=== PATIENT | male | born 1960 | race Caucasian/White ===

== ENCOUNTER → 2020-02-20 09:12 | Outpatient (CLI) | payer OTHER, SELFPAY ==
[2020-02-21 01:38] LABS: COVID19 Sendout Not Detected (Not Detect)
== END ==
PROVIDERS: Visit Provider Physician Assistant
DX: Z11.59 Encounter for screening for other viral diseases (principal)
CPT/HCPCS: 87635

== ENCOUNTER 2020-02-23 08:39 | Day surgery (SDC) | payer OTHER, SELFPAY ==
[2020-02-16 12:58] VITALS: BMI 30.2
[2020-02-23] VITALS (15 sets, daily range): BP systolic 62–134; BP diastolic 37–81; PULSE 40–97; RESP 13–18; TEMP 36.1–36.9; O2SAT 95–98; BMI 30.5
--- NOTE | 2020-02-23 06:00 | DI.RAD.S_ITS ---
PROCEDURE: XR KNEE LT 1TO2V INDICATIONS: postop TECHNIQUE: 2 view(s) of the knee acquired. COMPARISON: None. FINDINGS: Bones: Patient is status post knee joint arthroplasty. Hardware components are in expected positions. Visualized bony structures are intact. Soft tissues: Overlying postoperative changes are noted. IMPRESSION: Normal alignment after left total knee arthroplasty. Dictated by: Dion Sands M.D. on 02/23/2020 at 14:13 Approved by: Dion Sands M.D. on 02/23/2020 at 14:14
[2020-02-23] MEDS: LACTATED RINGERS 1,000 ML 42 ML IV ×2 (09:14→12:13)
[2020-02-23] MEDS: CELECOXIB 200 MG CAPSULE PO (09:18)
[2020-02-23] MEDS: PREGABALIN 75 MG CAPSULE PO (09:18)
[2020-02-23] MEDS: ACETAMINOPHEN 325 MG TABLET 975 MG PO (09:18)
--- NOTE | 2020-02-23 10:43 | P.OP_ITS ---
Operative Date/Time/Diagnoses Date of procedure: 02/23/20 Time of procedure: 10:43 Pre-op diagnosis: Bilateral knee OA Post-op diagnosis: same Procedure & Clinicians Procedure: Left total knee arthroplasty, right knee intra-articular steroid injection Same procedure as scheduled: Yes Indications: Bilateral knee OA Surgeon: Edilson Leslie Special Trackwork Blacksmith: Frandy Han Anesthesia Type: Spinal Operative Notes Findings: Advanced OA of the left knee with varus aligment of the extremity Closure Type: primary Prosthetic devices, grafts, tissues, transplants, or devices: [employer]hew size 8 left Journey II Oxinium femoral component Journey size 8 left tibial base plate Size 8 left 13 mm Journey 2 deep dish polyethylene 35 mm oval Quita II patellar button Estimated Blood Loss (mL): 200 Tourniquet time (min): 85 Procedure in detail: Patient was met in the preoperative holding area where the site and side of surgery were marked by MD. Informed consent had been reviewed and signed in clinic however was not transmit over the hospital. Informed consent was again reviewed with the patient going over the risks and benefits of surgery including the risk of infection, incomplete relief of symptoms, damage to local structures such as vessels and nerves, fracture, DVT, PE, need for future surgeries, etc. Patient demonstrates understanding of the risks and benefits a left total knee arthroplasty and wishes to proceed. In addition patient would like his right knee injected with an intra-articular steroid injection at the time of anesthesia. This was also included on the consent form. Patient was then brought back in the operating room where he is placed on operating table and spinal anesthetic was placed. He was then placed supine on operating room table. A surgical time-out was performed verifying the site and side of surgery as well as the name of the patient. This point the skin over the superolateral aspect of the right knee was prepped with ChloraPrep a 25 gauge needle was inserted into the right knee through superolateral portal and 5 cc combination of 40 mg of Kenalog and 4 cc of 0.5% ropivacaine was then injected into the joint with minimal resistance. The needle was then removed. The left lower extremity then had a nonsterile tourniquet placed on left thigh and the left lower extremity was then prepped and draped in normal sterile fashion. A longitudinal skin incision was made over the left knee using 10. Blade. A new 10. Blade was then used to raise medial and lateral flaps a medial parapatellar arthrotomy was then performed followed by removal of Hoffa's fat pad. A medial peel was then performed followed by removal of the lateral meniscus and anterior cruciate ligament. Excess osteophytes from the patella anterior tibia and the femur were then removed using a rongeur. Whitesides line was then marked and a drill was then used to enter the femoral canal proximally 0.5 cm anterior to PCL footprint. Intramedullary emre was then placed inside the left femur and the 5 degree valgus femoral cutting guide was then placed. After pinning the femoral block it was then increased by +4 mm. Patient had a known extension contracture preop. Femoral cut was then made using oscillating saw. Then turned our attention to the tibial side atrial was then used to enter the tibial canal 1 cm anterior to the ACL footprint and intramedullary emre was then placed. The cutting jig was then placed a drop emre was used to verify varus valgus alignment and a oscillating saw was then used to make our tibial cut. The medial meniscus was then removed using a rongeur and electrocautery. A static 11 mm extension block was then placed into our extension gap and we were able to achieve full extension. We then turned our attention back to the femoral side and the flexion gap administrative nursing supervisor was then used to set our femoral rotation. This was then marked and compared to Whitesides line which showed external rotation then used our femoral rotation guide set to 3? matched our administrative nursing supervisor pin sites. The femur was then sized to a size 8 and a and side a 5 in 1 cutting block was then placed on the distal femur. For cuts were then sequentially made using oscillating saw. A size 8 femoral component trial was then placed as well as a size a tibial trial with a 11 mm polyethylene. At this point was noted that we able to come to full extension although there was a slight amount of chocolate ac ceptable in full extension in flexion there was a little bit more laxity than I would like to varus valgus in full flexion. We then selected a 13 mm polyethylene was still able to get full extension as well as close down the flexion gap. Then cut the patella and sized for size 35 mm oval button this was then drilled for and a trial button was placed through range of motion the was some medial lift-off and so a lateral release was performed which helped our patellar tracking. Femoral component as well as the patellar trial and the tibial trials were then removed after marking tibial baseplate rotation. The tibial base plate was then drilled and punched. Local anesthetic was then infiltrated into the back of the knee as well as the periarticular soft tissues. Pulse lavage was then used to clean the cut surfaces of bone we began cement mixing. Cut surfaces were then dried and cement was then finger packed onto the tibial cut surface as well as into the keel hole. Cement was placed on the undersurface of the tibial base plate the tibial base plate was then malleted into place excess cement was removed cement was then finger packed onto the cut surfaces of the femur with exception of the posterior condyle cut. Cement was placed on the feet of the femoral component and this was malleted into place and excess cement was removed. A size 13 mm CR polyethylene was then selected then placed the knee was brought into full extension and the foot was held in internal rotation. Then finger packed cement onto the patella cut surface as well as placed cement between the pegs on the patellar button this was then clamped into place and excess cement was removed. Betadine was then placed into the wound allowed to sit for 5 minutes prior to washing away with copious normal saline. The knee was held in full extension until cement was fully cured this point excess cement was chipped away and removed. The polyethylene trial was then removed and a size 813 mm deep dish polyethylene was then selected and placed with confirmation that the medial and lateral tabs were fully engaged. Patellar tracking was checked again and was noted to be improved with the lateral leads. Tourniquet was then let down a 85 minutes down electrocautery was used to gain hemostasis. Medial parapatellar arthrotomy was then repaired using 1. Vicryl interrupted fashion followed by Quill suture followed by a running 1. Vicryl as the fat suture layer followed by interrupted 2 Vicryl in the subcutaneous layer followed by a 3 over running stress fix in the subcuticular layer followed by Dermabond. An Aquacel dressing was then placed Complications: none Post-operative Condition: stable Disposition: PACU Plan for aftercare: Weightbearing as tolerated left lower extremity, 24 hours postop antibiotics, aspirin 325 mg b.i.d. for 6 weeks
--- NOTE | 2020-02-23 10:44 | PM.PREOP ---
Pre-operative Note COVID-19 COVID-19 status: Negative Result date/Date tested (Pos, Neg/Pending): 02/20/20 Interval Note History & Physical reviewed/Exam performed by Physician: Yes Changes to H&P: No H&P completed within 30 days and has changed as indicated here:: Plan for Left Total Knee Arthroplasty, right knee steroid injection. Pre-op EKG and labs reviewed.
[2020-02-23] MEDS: CEFAZOLIN 2 GM/100 ML FROZ.PIGGY IV ×2 (10:54→20:13)
--- NOTE | 2020-02-23 11:29 | SUR.OPER ---
Supine on padded OR bed. Pillow under head, arms secured on padded armboards <90 degree abduction. Safety belt across torso. Non-operative leg secured with tape over blanket over lower leg. Foam padded brace at thigh of operative leg.
[2020-02-23] MEDS: TRANEXAMIC ACID 1,000 MG VIAL 1000 MG INH (11:36)
[2020-02-23] MEDS: ROPIVACAINE 0.5% PF 5 MG/ML 20ML VIAL 60 ML INJ (11:37)
[2020-02-23] MEDS: MORPHINE 4 MG/ML INJ INJ (11:38)
[2020-02-23] MEDS: KETOROLAC 30 MG/ML VIAL IV (11:38)
--- NOTE | 2020-02-23 11:40 | SUR.OPER ---
UNABLE TO SCAN MARCAINE 0.5 AND KENALOG REMOVED FROM [address] WORTHINGTON DISPOSED OF THE MEDICINE BOTTLES.
[2020-02-23] MEDS: SODIUM CHLORIDE IRRIG SOLUTION 250 ML, EPINEPHrine 1 MG IRR (12:54)
[2020-02-23] MEDS: LACTATED RINGERS 1,000 ML 100 ML IV (14:49)
[2020-02-23] MEDS: ACETAMINOPHEN 325 MG TABLET 650 MG PO ×2 (14:50→20:13)
--- NOTE | 2020-02-23 17:10 | PT.IIE ---
Current Diagnoses Unilateral primary osteoarthritis, right knee (02/23/20) Surgery Performed Operation Date: 02/23/20 10:45 Actual Procedures p Total Knee Arthroplasty LEFT, RIGHT KNEE STEROID INJECTION - Edilson Leslie MD Surgical History (Last Updated 02/16/20 @ 13:27 by Na Abdul RN) History of surgery (Acute) History of vasectomy (Acute) Hx of arthroscopy of right knee (Acute ~1997) Hx of arthroscopy of right knee (Acute ~2010) Hx of bilateral cataract extraction (Acute) Hx of eye surgery (Acute) Hx of hand surgery (Acute) Hx of heart artery stent (Acute) Hx of right knee surgery (Acute) Hx of sinus surgery (Acute) Hx of tonsillectomy (Acute) Medical History (Last Updated 02/16/20 @ 13:27 by Na Abdul RN) CAD (coronary artery disease) (Acute) GERD (gastroesophageal reflux disease) (Acute) Glaucoma (Acute) Head injury (Acute 1985) Hearing impaired (Acute) Hemochromatosis (Acute) HLD (hyperlipidemia) (Acute) HTN (hypertension) (Acute) Myocardial infarction (Acute 2005) Osteoarthritis (Acute) Physical Therapy Inpatient Evaluation/Re-Eval M1 PT/OT-IP Prior Functional Status Start: 02/23/20 15:05 Freq: NEEDED Status: Active Protocol: Document 02/23/20 16:53 AW (Rec: 02/23/20 17:10 AW [id number]) Medical Review Prior Functional Status Medical History Reviewed Yes Communication WNL. Pt is an effective verbal communicator. Mobility and Gait Pt is independent with all mobilities and does not use any assistive device. Activities of Daily Living and IADL's Independent. Pt is an active tour bus driver/guide. Social History Household Members spouse Living Arrangements House Number of Floors (Floors) Two Floors Number of Stairs To Enter/Railing? 5 HUMZA with narrow bilateral rails. Pt is able to stay on main level until able to manage stairs to second floor bedrooms. Home Environment Standard Height Toilet,High Toilet,Walk in Shower,Tub/ Shower Home Equipment Front Wheel Walker Additional Social History Comment There are a wall and a cabinet next to the toilet which pt can use to steady himself. Pt has foldout beds downstairs so he can avoid up/down stairs until able. Pt's works at home and will be available and able to assist. Pt is an lead electrical engineer. M2 PT-IP Current Condition Start: 02/23/20 15:05 Freq: NEEDED Status: Active Protocol: Document 02/23/20 16:53 AW (Rec: 02/23/20 17:10 AW [id number]) Physical Therapy Current Condition Current Condition Evaluation Date 02/23/20 Treatment Diagnosis L TKA; difficulty in walking Onset Date 02/23/20 Weight Bearing Status Weight Bearing Status Weight Bear as Tolerated M3 PT-IP Subjective Start: 02/23/20 15:05 Freq: NEEDED Status: Active Protocol: Document 02/23/20 16:53 AW (Rec: 02/23/20 17:10 AW [id number]) Subjective Physical Therapy Visit Type Type Initial Evaluation Visit Start Time 16:16 Visit Stop Time 16:50 Total Visit Minutes 34 Notes Pt's spouse, Padmaja, was present throughout evaluation Physical Therapy Visit Comments Patient Comments Pt is willing to participate with PT Patient Goals Pt hopes to be able to increase his activity level Therapy Pain Assessment Pain When Pain Assessed During Mobility Pain Present Pain Present Pain Reported Location left knee Intensity 10 Scale Used 1/10 at rest; 10/10 during weightbearing Pain Behaviors Facial Grimacing,Wincing Pain Management Techniques Apply Cold,Timing of Activity with Medications M4 PT-IP Mobility and Gait Start: 02/23/20 15:05 Freq: NEEDED Status: Active Protocol: Document 02/23/20 16:53 AW (Rec: 02/23/20 17:10 AW [id number]) PT-Bed Mobility Assessment Supine to Sit Supine to Sit Minimal Assistance,Total Assistance,Bedrails Sit to Supine Sit to Supine Minimal Assistance,1 Person Assistance Scooting Scooting to Edge of Bed Standby Assistance PT-Transfer Assessment Sit to and From Stand Sit to and from Stand Minimal Assistance,1 Person Assistance,Use of Upper Extremities Equipment Transfer Assistive Device Gait Belt,Front Wheeled Walker Orthotic/Prosthetic Devices or Brace: No Transfers Transfer Destination Bed Transfer Technique pt ambulated with FWW Transfer Ability Level of Assist Minimal Assistance,1 Person Assistance,Use of Upper Extremities Comments Mobility Comments Pt was reclined in the bed as PT arrived. Spouse, Padmaja, was visiting. With HOB flat, pt required min A x 1 to move his operative leg toward the left side of the bed and to support it during flexion. Sitting BP was 135/77 HR 62. He sat EOB SBA and then stood using FWW min A x 1. Pt required cues to push from the bed surface vs pulling on the FWW. Pt was able to shift weight laterally with heavy UE weightbearing on the walker to offload the LLE. Pt complained of significantly increased pain in standing. Pt ambulated around the room a total of 15 feet before returning to the bed and requiring min A x 1 to elevate the operative leg to the bed. Before returning to supine, BP was 107/55 and pt complained of nausea. Pt was positioned on the bed with fresh ice packs applied, call light and all needs within reach, bed alarm armed for safety. Communicated findings to RN as well as pt's request for pain medication. Gait Assessment Gait Gait Assistance Required: Minimum Assistance,1 Person Assist Distance (Feet) 15 Able to Maintain Weight Bearing Status Yes During Gait Assistive Devices Assistive Device Gait Belt,Front Wheeled Walker Orthotic/Prosthetic Devices or Brace: No Gait Deviations General Gait Pattern Antalgic,Decreased Stride Length,Decreased Feet Clearance,Flexed Trunk,Step-to Gait Factors Limiting Gait Function Factors Limiting Gait Function Decreased Activity Tolerance, Decreased Strength,Limited Range of Motion,Pain,Poor Balance,Poor Safety Awareness Comments Gait Comments See mobility comments for details. Stair Climbing Assessment Comments Stair Climbing Comments Not assessed due to pt's pain level. PT-Balance Assessment Sitting Balance and Reactions Static Sitting Balance Ability Good Dynamic Sitting Balance Ability Good Standing Balance and Reactions Static Standing Balance Ability Fair Dynamic Standing Balance Ability Fair Device Used FWW M5 PT-IP Objective Assessments Start: 02/23/20 15:05 Freq: NEEDED Status: Active Protocol: Document 02/23/20 16:53 AW (Rec: 02/23/20 17:10 AW [id number]) Orientation Orientation/Cognition Level of Alertness Alert Orientation Name,Day of Week,Place, Situation Language Function Ability No Deficits Noted Safety Awareness Decreased Safety Awareness Memory Description No Deficits Noted Gross Range of Motion Lower Extremity ROM Assessment Left Impaired Strength Lower Extremity Strength Assessment Left Impaired Comments Strength Comments RLE grossly 4+/5 Sensation Assessment Sensation Gross Sensation WNL Comments Sensation Comments Pt denied numbness in BLE M6 PT-IP Treatment Start: 02/23/20 15:05 Freq: NEEDED Status: Active Protocol: Document 02/23/20 16:53 AW (Rec: 02/23/20 17:10 AW [id number]) Physical Therapy Treatment Exercises Exercises Ankle Pumps,Quad Sets,Heel Slides,Passive Knee Extension Hang Knee ROM Measurement 10-80 degrees Education Education Provided Precautions,Weight Bearing Status,Post-Op Packet,Safety Other Treatments Other Treatment Performed Provided education on role of PT, plan of care, weightbearing status, and safe use of FWW. M7 PT-IP Assessment and Plan Start: 02/23/20 15:05 Freq: NEEDED Status: Active Protocol: Document 02/23/20 16:53 AW (Rec: 02/23/20 17:10 AW [id number]) PT Summary Assessment and Plan Potential Rehabilitation Potential Good Status of Condition at Evaluation Evolving Summary Impairments Pain,ROM,Strength,Balance,Bed Mobility,Transfers,Gait, Activity Tolerance Assessment Summary Carl is a 59 yo man seen for PT evaluation on POD0 following L TKA. He is independent in all regards at baseline. On evaluation, he requires min assist with all mobility. Primary limitation is pain but pt also complains of nausea and experienced a 30 point drop in SBP during treatment. PT anticipates he will progress and be safe to discharge home with assist and outpatient PT. Pt reports he has his first PT appointment this Sunday. Goals Bed Mobility Goal Standby Assistance Transfer Goal Standby Assistance,Front Wheeled Walker Gait Goal Standby Assistance,Front Wheel Walker Gait Distance 200 Other Goals - up/down 5 steps with B rails SBA Days to Meet Goals 3 Frequency of Treatment Frequency Of Treatment Twice a Day Treatment Plan Physical Therapy Treatment Plan Bed Mobility Training,Transfer Training,Gait Training, Therapeutic Exercise,Balance Retraining,Post Op Education, Discharge Planning,Hot or Cold Pack,Neuromuscular Re-ed, Coordination Retraining,Manual Therapy Recommendations To Nursing Amount of Assist Needed 1 Person Assist Discharge Recommendations PT Discharge Recommendations Home with Assistance, Outpatient PT Transportation Needs at Discharge Private Vehicle
[2020-02-23 19:55] LABS: Add Manual Diff / Slide Review NO; Basophils Absolute Auto 0 /uL (0-100); Basophils Percent Auto 0.1 % (0-2); Eosinophils Absolute Auto 0 /uL (0-450); Hematocrit 37.6 % (41-53); Hemoglobin 13.2 g/dL (13.5-17.5); Lymphocytes Absolute Auto 400 /uL (1100-4500); Lymphocytes Percent Auto 3.6 % (25-40); Mean Corpuscular Hemoglobin 34.9 PG (26-34); Mean Corpuscular Volume 99.6 fL (80-100); Monocytes Absolute Auto 200 /uL (0-900); Monocytes Percent Auto 1.9 % (3-14); Neutrophils Absolute Auto 10300 /uL (1500-7000); Neutrophils Percent Auto 94.4 % (50-75); Platelet Count 166 X10^3/uL (150-400); Red Blood Cell Count 3.78 X10^6/uL (4.5-5.9); Red Cell Distribution Width 12.3 % (11.6-14.8); White Blood Cell Count 10.9 X10^3/uL (4.5-11.0)
[2020-02-23] MEDS: DOCUSATE 100 MG CAPSULE PO (20:13)
[2020-02-23] MEDS: ASPIRIN EC 81 MG TABLET 325 MG PO (20:13)
[2020-02-24] MEDS: OXYCODONE IR 10 MG TABLET PO ×3 (01:32→12:48)
[2020-02-24] MEDS: BIMATOPROST 0.01% OPHTH 2.5 ML 1 DROPS EYE-BOTH (01:37)
--- NOTE | 2020-02-24 01:43 | PC.NURSE ---
Pt. requested his eye gtt. States I normally used my eye drop at night when I'm home. Pt. self administered his eye drop. C/O left knee pain, mrdicated with 10 mg. of Oxycodone. Will cont. POC & monitor.
[2020-02-24] MEDS: LACTATED RINGERS 1,000 ML 100 ML IV (01:51)
[2020-02-24] MEDS: CEFAZOLIN 2 GM/100 ML FROZ.PIGGY IV (03:00)
[2020-02-24 03:50] VITALS: BP 117/75; PULSE 60; RESP 18; TEMP 36.3; O2SAT 95
[2020-02-24 05:35] LABS: Hematocrit 34.3 % (41-53)
--- NOTE | 2020-02-24 07:46 | P.PN_ITS ---
Subjective Subjective Date Patient Seen: 02/24/20 Time Patient Seen: 07:46 Interval history: Patient's pain is mild. Denies fever chills. No nausea vomiting. Exam Vital Signs (past 8 hours): - 02/24/20 03:50 Temperature 97.4 F L Pulse Rate 60 Respiratory Rate 18 Blood Pressure 117/75 Pulse Oximetry 95 Oxygen Delivery Method Room Air Oxygen Flow Rate 0 Narrative Exam Narrative: 5-year-old male resting comfortably in bed in no apparent distress. Knee dressing is clean, dry and intact. Motor function is intact distal. Sensation grossly intact distally as well. Objective Labs Result Diagrams: 02/24/20 05:07 Labs: Laboratory Results - last 24 hr 02/23/20 02/24/20 19:33 05:07 WBC 10.9 RBC 3.78 L Hgb 13.2 L 12.0 L Hct 37.6 L 34.3 L MCV 99.6 MCH 34.9 H MCHC 35.0 RDW 12.3 Plt Count 166 Neut % (Auto) 94.4 H Lymph % (Auto) 3.6 L [place] % (Auto) 1.9 L Eos % (Auto) 0.0 L Baso % (Auto) 0.1 Neut # (Auto) 52413 H Lymph # (Auto) 400 L [place] # (Auto) 200 Eos # (Auto) 0 Baso # (Auto) 0 Assessment & Plan Post-op Postoperative Procedures: Procedures Operation Date: 02/23/20 10:45 Actual Procedures Side Surgeon p Total Knee Arthroplasty LEFT, RIGHT KNEE STEROID INJECTION Edilson Leslie MD Postop day 1. Patient progressing as expected. Mobilize with physical therapy. Weight-bearing as tolerated. Aspirin 325 mg b.i.d. for 6 weeks. Likely discharge home this evening. Quality VTE Deep Vein Thrombosis/Pulmonary Embolism Present on Admission: No
[2020-02-24 08:00] VITALS: BP 118/74; PULSE 70; RESP 20; TEMP 37.1; O2SAT 96
[2020-02-24 08:56] VITALS: PULSE 70; RESP 16; O2SAT 99
[2020-02-24] MEDS: ACETAMINOPHEN 325 MG TABLET 650 MG PO (09:19)
[2020-02-24] MEDS: DOCUSATE 100 MG CAPSULE PO (09:19)
[2020-02-24] MEDS: ASPIRIN EC 325 MG TABLET PO (09:25)
--- NOTE | 2020-02-24 10:49 | PC.NURSE ---
Day shift: Pt OOB and ambulating with PT. Tolerating well. BP WNL.
--- NOTE | 2020-02-24 11:10 | PT.IPTN ---
Current Diagnoses Unilateral primary osteoarthritis, right knee (02/23/20) Surgery Performed Operation Date: 02/23/20 10:45 Actual Procedures p Total Knee Arthroplasty LEFT, RIGHT KNEE STEROID INJECTION - dEilson Leslie MD Physical Therapy Treatment Note M2 PT-IP Current Condition Start: 02/23/20 15:05 Freq: NEEDED Status: Active Protocol: Document 02/23/20 16:53 AW (Rec: 02/23/20 17:10 AW [id number]) Physical Therapy Current Condition Current Condition Evaluation Date 02/23/20 Treatment Diagnosis L TKA; difficulty in walking Onset Date 02/23/20 Weight Bearing Status Weight Bearing Status Weight Bear as Tolerated M3 PT-IP Subjective Start: 02/23/20 15:05 Freq: NEEDED Status: Active Protocol: Document 02/24/20 10:26 CLB (Rec: 02/24/20 13:04 CLB [id number]) Subjective Physical Therapy Visit Type Type Treatment Note Visit Start Time 10:26 Visit Stop Time 11:10 Total Visit Minutes 44 Notes Pt's spouse, Padmaja, was present throughout evaluation Number of STONE SPLITTER Visits 1 Physical Therapy Visit Comments Patient Comments Pt is willing to participate with PT Therapy Pain Assessment Pain When Pain Assessed At Rest Pain Present Pain Present Pain Reported Location left knee Intensity 2 Scale Used pt states a little higher with mobility Pain Management Techniques Apply Cold,Timing of Activity with Medications M4 PT-IP Mobility and Gait Start: 02/23/20 15:05 Freq: NEEDED Status: Active Protocol: Document 02/24/20 10:26 CLB (Rec: 02/24/20 13:04 CLB [id number]) PT-Bed Mobility Assessment Supine to Sit Supine to Sit Minimal Assistance,1 Person Assistance Scooting Scooting to Edge of Bed Minimal Assistance PT-Transfer Assessment Sit to and From Stand Sit to and from Stand Contact Guard Assistance,1 Person Assistance,Use of Upper Extremities Equipment Transfer Assistive Device Gait Belt,Front Wheeled Walker Orthotic/Prosthetic Devices or Brace: No Transfers Transfer Destination Chair,Wheelchair Transfer Technique pt ambulated with FWW Transfer Ability Level of Assist Standby Assistance,Contact Guard Assistance Comments Mobility Comments Pt in bed upon arrival performing HS, quad and glute sets and SAQ. Pt required Min A of LLE out of bed and Padmaja was able to assist pt appropriately. Pt stood from bed CGA and ambulated in crain w/FWW/SBA ~100ft. Pt with heavy UE use to prevent putting weight through LLE. Pt sat in WC SBA for the rest of the way to the therapy stairs . Pt stood SBA from WC and ambulated to steps SBA. After demonstration pt climbed three steps with bilateral rails, second set of stairs was with providing SBA-CGA with GB . Pt rode in WC back to room transferring into chair SBA. Pt then performed seated heel slides with hold. Pt able to bend knee to ~90 degrees. Left pt with LLE in passive extension. Call light and all needs within reach and [place] present. ONCOLOGY SOCIAL WORK present. Gait Assessment Gait Gait Assistance Required: Standby Assistance,1 Person Assist Able to Maintain Weight Bearing Status Yes During Gait Assistive Devices Assistive Device Gait Belt,Front Wheeled Walker Orthotic/Prosthetic Devices or Brace: No Gait Deviations General Gait Pattern Antalgic,Decreased Stride Length,Decreased Feet Clearance,Flexed Trunk,Step-to Gait Factors Limiting Gait Function Factors Limiting Gait Function Decreased Activity Tolerance, Decreased Strength,Limited Range of Motion,Pain,Poor Balance Comments Gait Comments See mobility comments for details. Stair Climbing Assessment Evaluation Level of Assist On Stairs Standby Assistance,Contact Guard Assistance Devices Stair Climbing Assistive Devices Left Railing,Right Railing Technique/Endurance Stair Climbing Direction Ascend and Descend Stair Climbing Technique Step to Step Number of Steps Climbed 3 Stair Climbing Set # Repetitions (reps) 2 Comments Stair Climbing Comments Pt able to climb two sets of three steps with assisting pt. M5 PT-IP Objective Assessments Start: 02/23/20 15:05 Freq: NEEDED Status: Active Protocol: Document 02/23/20 16:53 AW (Rec: 02/23/20 17:10 AW [id number]) Orientation Orientation/Cognition Level of Alertness Alert Orientation Name,Day of Week,Place, Situation Language Function Ability No Deficits Noted Safety Awareness Decreased Safety Awareness Memory Description No Deficits Noted Gross Range of Motion Lower Extremity ROM Assessment Left Impaired Strength Lower Extremity Strength Assessment Left Impaired Comments Strength Comments RLE grossly 4+/5 Sensation Assessment Sensation Gross Sensation WNL Comments Sensation Comments Pt denied numbness in BLE M6 PT-IP Treatment Start: 02/23/20 15:05 Freq: NEEDED Status: Active Protocol: Document 02/24/20 10:26 CLB (Rec: 02/24/20 13:04 CLB [id number]) Physical Therapy Treatment Exercises Exercises Ankle Pumps,Quad Sets,Heel Slides,Short Arc Quads,Passive Knee Extension Hang Knee ROM Measurement 10-90 degrees in sitting Education Education Provided Precautions,Weight Bearing Status,Post-Op Packet,Safety M7 PT-IP Assessment and Plan Start: 02/23/20 15:05 Freq: NEEDED Status: Active Protocol: Document 02/24/20 10:26 CLB (Rec: 02/24/20 13:04 CLB [id number]) PT Summary Assessment and Plan Summary Impairments Pain,ROM,Strength,Balance,Bed Mobility,Transfers,Gait, Activity Tolerance Progress Towards Goals Progressing Toward Goals Assessment Summary Pt requires Min A of LLE getting out of bed. Pt is SBA- CGA for all other mobility, pt able to climb stairs and ambulate ~100ft w/FWW/SBA. Pt is able to assist pt with bed mobility and stairs. Goals Bed Mobility Goal Standby Assistance Transfer Goal Standby Assistance,Front Wheeled Walker Gait Goal Standby Assistance,Front Wheel Walker Gait Distance 200 Other Goals - up/down 5 steps with B rails SBA Days to Meet Goals 3 Frequency of Treatment Frequency Of Treatment Twice a Day Treatment Plan Physical Therapy Treatment Plan Bed Mobility Training,Transfer Training,Gait Training, Therapeutic Exercise,Balance Retraining,Post Op Education, Discharge Planning,Hot or Cold Pack,Neuromuscular Re-ed, Coordination Retraining,Manual Therapy Recommendations To Nursing Amount of Assist Needed 1 Person Assist Discharge Recommendations PT Discharge Recommendations Home with Assistance, Outpatient PT Transportation Needs at Discharge Private Vehicle
[2020-02-24] MEDS: CALCIUM CARBONATE 500 MG TAB PO (11:42)
[2020-02-24 12:00] VITALS: BP 111/65; PULSE 80; RESP 16; TEMP 37.2; O2SAT 93
--- NOTE | 2020-02-24 12:06 | CM.DANOTE ---
DCP/Assessment: Reviewed chart. Patient is a 59yr old male admitted to [facility] for elective right TKA performed on 02-23-20. PCP is Dr. Moreno. Primary payor is 1)R 2)Self pay. Met with patient and spouse at bedside explained CM/SW role. Patient alert and oriented, working with therapy at time of visit. Patient and spouse report that d/c plan is for patient to go home when stable. Patient believes that this might be today (pending PT progress). Spouse reports that they have all needed DME and have arranged residence for patient to recover. Outpatient therapy scheduled on [facility]. Patient will need priority boarding pass. No additional d/c planning needs identified. P: Home when stable. KEM Stacy Discharge Planning/Care Management CM Discharge Assessment Start: 02/24/20 12:02 Freq: Status: Active Protocol: Document 02/24/20 12:03 KJ (Rec: 02/24/20 12:06 [facility] [id number]) Discharge Planning Assessment Assigned Cashier Receptionist KEM Stacy Contact Information Padmaja Rodriguez (spouse) Advance Directives? No History Provided By Patient,Significant Other, Medical Record Prior Living Arrangements House Household Members spouse Type of transporation used prior to Drives own vehicle admit Independent with ADL's Yes Is patient alert and oriented? Yes DME Already Rented / Owned FWW / Walker Patient/Family Preference OP PT Therapy Barriers to Discharge No Discharge Plan Home Transportation Arrangement Spouse can provide transport. Whiteboard Updated in Patient Room with Yes name and ext. # of Cashier Receptionist Review Status In Process Next Review Type Continued Stay Review Pre-Anesthesia Assessment Start: 02/16/20 12:58 Freq: Status: Complete Protocol: Document 02/16/20 12:58 CAB (Rec: 02/16/20 13:49 CAB [id number]) Pre-Anesthesia Assessment Patient Information Reviewed Via Phone Assessment Assessment Completed With Patient Diagnostic Results EKG Comment Outside EKG scanned, COVID screen @ 02/20/20 Primary Care Provider Mauro Moreno Medical Clearance Received Yes Seen Specialist in Last 12 Months Yes Specialist Seen Kitchen Clerk,Orthopedist Comment PCP clearance scanned to record Primary Language Latvian Radio Engineer Required No Height 187.96 cm Weight 106.594 kg Body Mass Index (BMI) 30.2 Hearing Ability Normal Visual Assist None,Magnifying Glass Dentition Type Teeth, Natural Present,Teeth, Missing Hx Anesthesia Reactions No Hx Family Anesthesia Reaction No Hx Malignant Hyperthermia No Hx Blood Transfusions No Anesthesia Review Requested Yes: Reviewed prior to scheduling Additional comment Anesthesia review scanned and placed in surgery folder for dos alcohol intake former Alcohol Intake Frequency Other: Quit 2011 Smoking Status Former smoker how long ago did patient quit smoking Quit age 21 Substance Use Type does not use Pain Present Pain Reported Musculoskeletal Symptoms Abnormal Gait,Difficulty Walking,Joint Pain,Joint Stiffness History of Falling (Recent or History of No ) Patient is completely paralyzed or No completely immobile Mental Status Oriented to own ability Is patient on oxygen? No Does patient have JESUS/SOB No Hx Sleep Apnea No Currently Taking a Beta Lucio No Can You Climb a Flight of Stairs Without Yes SOB Hx Chest Pain Yes Hx SOB No Hx Syncope or Dizziness No Anti-Coagulant Therapy Yes: 325mg holding 5 days prior per Surgeon Has a Kitchen Clerk Yes: Dr. Sanchez-last visit 01/08 Cardiac Testing Yes: Echo stress 09/11/19 Hx Pacemaker/ICD No Pacemaker Rep Required? No Cardiac Clearance Received Yes Comment Cardiac records scanned to record Diet Type At Home Regular dysphagia No Urinary Catheter Present No Hx Urinary Self Catheterization No Diabetes No Hx Drug Resistant Organism No Presence of External or Internal Medical Yes: Wilfrid eye lens, cardiac Devices stent x 2, sinus Have you had any close contact with No someone diagnosed with COVID-19? Marital Status Lives With spouse Prior Living Arrangements House Number of Floors (Floors) 3 or More Floors Support System Spouse Does the Patient Have Assistance After Yes Surgery Patient Discharge Plan Description Return Home Comment Pt advised overnight length of stay per surgeon Feels Safe in Current Environment Yes Been Physically Hurt or Threatened By a No Person in Current Environment Do you have thoughts of harming yourself None or others? Are you currently considering suicide? No Do you have a plan to hurt yourself or No Plan others? Do You Have Any Spiritual Beliefs That No May Affect Your HC Choices? Do You Have Any Cultural Practices That No May Affect Your HC Choices? Who Can We Speak to About Patient's Care Family, friends Identifying Code for Release of Patient Declines to issue Information Health Care Proxy/Next of Kin Padmaja () Health Care Proxy Emergency Contact Name Padmaja () Emergency Contact Advance Directives? No Power of Registered Clinical Dietitian No PAC Instructions Durable medical equipment, Medications to take/avoid, Nasal antibiotic,No ETOH/ petroleum product on skin DOS, NPO,Pre-surgical wash,Sturdy shoes/comfortable clothes,Do not bring valuables and remove jewelry
--- NOTE | 2020-02-24 13:49 | PC.NURSE ---
Day shift: Paperwork singed and all questions answered. Pt has all personal belongings. scripts taken to pharmacy by Pt's spouse. STEVE wrap remains CDI. PPP and CMS good.
== END 2020-02-24 13:51 | disposition home or self-care (01) ==
LOC: OR 08:42 → AC 12:46
PROVIDERS: PCP Family Medicine; Referring Provider Family Medicine; Visit Provider Orthopaedic Surgery Adult Reconstructive Orthopaedic Surgery
PROC: (CPT 27447; principal; 2020-02-23 10:45)
DX: M17.11 Unilateral primary osteoarthritis, right knee (principal); M21.161 Varus deformity, not elsewhere classified, right knee; I25.2 Old myocardial infarction; Z87.891 Personal history of nicotine dependence
CPT/HCPCS: 27447; 36415; 73560; 85014; 85018; 85025; 94762; 97110; 97116; 97161; 97530; C1776; J0171; J0690; J1885; J2250; J2270; J2704; J3010

== ENCOUNTER → 2020-09-23 11:34 | Outpatient (CLI) | payer OTHER, SELFPAY ==
[2020-02-23 14:36] VITALS: BMI 30.5
[2020-09-23 19:16] LABS: BUN Creatinine Ratio 34.7 (6-22); Blood Urea Nitrogen 26 mg/dL (9-20); Calcium 9.9 mg/dL (8.4-10.2); Carbon Dioxide 29 mmol/L (22-32); Chloride 105 mmol/L (98-107); Estimated Glomerular Filt Rate > 60.0 mL/min (>60); Glucose 105 mg/dL (80-110); HEMOLYSIS < 15 (0-50); Potassium 4.7 mmol/L (3.4-5.1); Sodium 138 mmol/L (137-145)
[2020-09-23 19:17] LABS: Add Manual Diff / Slide Review NO; Basophils Absolute Auto 0 /uL (0-100); Basophils Percent Auto 0.9 % (0-2); Eosinophils Absolute Auto 100 /uL (0-450); Eosinophils Percent Auto 2.9 % (2-4); Hematocrit 41.6 % (41-53); Hemoglobin 14.6 g/dL (13.5-17.5); Lymphocytes Absolute Auto 1700 /uL (1100-4500); Lymphocytes Percent Auto 33.1 % (25-40); Mean Corpuscular Hemoglobin 34.9 PG (26-34); Mean Corpuscular Volume 99.6 fL (80-100); Monocytes Absolute Auto 600 /uL (0-900); Monocytes Percent Auto 11.5 % (3-14); Neutrophils Absolute Auto 2600 /uL (1500-7000); Neutrophils Percent Auto 51.6 % (50-75); Platelet Count 182 X10^3/uL (150-400); Red Blood Cell Count 4.17 X10^6/uL (4.5-5.9); Red Cell Distribution Width 12.1 % (11.6-14.8); White Blood Cell Count 5.1 X10^3/uL (4.5-11.0)
== END ==
PROVIDERS: Visit Provider Orthopaedic Surgery Adult Reconstructive Orthopaedic Surgery
DX: Z01.812 Encounter for preprocedural laboratory examination (principal)
CPT/HCPCS: 80048; 83036; 85025

== ENCOUNTER → 2020-10-11 12:53 | Outpatient (CLI) | payer OTHER, SELFPAY ==
[2020-02-23 14:36] VITALS: BMI 30.5
[2020-10-11 20:44] LABS: COVID19 - ORCAS (NP or Nasal) Negative (Negative)
== END ==
PROVIDERS: Visit Provider Family Medicine
DX: Z20.822 Contact with and (suspected) exposure to COVID-19 (principal)
CPT/HCPCS: U0003

== ENCOUNTER 2020-10-14 11:15 | Observation (INO) | payer OTHER, SELFPAY ==
[2020-02-23 14:36] VITALS: BMI 30.5
[2020-10-05 12:48] VITALS: BMI 32.5
[2020-10-13] VITALS (14 sets, daily range): BP systolic 90–132; BP diastolic 46–89; PULSE 54–75; RESP 8–20; TEMP 35.7–36.7; O2SAT 95–99; BMI 32.5
[2020-10-13] MEDS: MIDAZOLAM 2 MG/2 ML VIAL IV (10:05)
[2020-10-13] MEDS: fentaNYL 100 MCG/2 ML INJ 50 MCG IV ×2 (10:10→10:42)
[2020-10-13] MEDS: LACTATED RINGERS 1,000 ML 42 ML IV ×2 (10:10→11:23)
--- NOTE | 2020-10-13 10:14 | PM.PREOP ---
Pre-operative Note COVID-19 COVID-19 status: Negative Result date/Date tested (Pos, Neg/Pending): 10/11/20 Interval Note History & Physical reviewed/Exam performed by Physician: Yes Changes to H&P: No H&P completed within 30 days and has changed as indicated here:: Plan for left TKA
--- NOTE | 2020-10-13 10:24 | SUR.PREOP ---
Block start time 1015[] . Monitoring initiated and maintained throughout procedure. Oxygen and medications given per anesthesiologist instructions. Patient remained stable throughout procedure, no adverse reactions noted. Block end time [1021].
--- NOTE | 2020-10-13 10:28 | SUR.PREOP ---
Strip printed and in chart. Sedation completed for nerve block and patient to operating room with IRAIS Hamilton
[2020-10-13] MEDS: TRANEXAMIC ACID 1,000 MG in SODIUM CHLORIDE 0.9% 100 ML 200 ML IV (10:45)
[2020-10-13] MEDS: CEFAZOLIN 1 GM VIAL 2 GM IV ×2 (10:51→19:25)
--- NOTE | 2020-10-13 10:57 | SUR.OPER ---
Supine on padded OR bed. Pillow under head, arms secured on padded armboards <90 degree abduction. Safety belt across torso. Non-operative leg secured with tape over blanket over lower leg. Operative leg under control of surgeon on nathe foam padded positioner. Foam padded brace at thigh of operative leg.
[2020-10-13] MEDS: ROPIVACAINE 0.5% PF 30ML 20 ML INJ (11:09)
[2020-10-13] MEDS: KETOROLAC 30 MG/ML VIAL IV (11:11)
[2020-10-13] MEDS: POVIDONE-IODINE SPONGE STICKS 1 APPLIC TOP (11:12)
[2020-10-13] MEDS: MORPHINE 4 MG/ML INJ INJ (11:12)
--- NOTE | 2020-10-13 12:56 | P.OP_ITS ---
Operative Date/Time/Diagnoses Date of procedure: 10/13/20 Time of procedure: 12:56 Pre-op diagnosis: right knee OA Post-op diagnosis: same Procedure & Clinicians Procedure: Right total knee arthroplasty Same procedure as scheduled: Yes Indications: Right knee osteoarthritis resistant to further conservative measures Surgeon: Edilson Leslie Pot Holder Binder: Oneil Goff Anesthesia Type: Spinal Operative Notes Findings: Overall valgus alignment. [id number] articulation of the lateral compartment. Large osteophytes throughout. Severe degenerative changes Closure Type: primary Specimen(s): none sent Prosthetic devices, grafts, tissues, transplants, or devices: Yang and nephew Journey 2 CR size 8, right femur Journey size 8, right tibial base plate Size 7-8, right 12 mm thick deep dish polyethylene 35 mm oval Quita 2 patellar button Estimated Blood Loss (mL): 100 Tourniquet time (min): 69 Procedure in detail: Patient was met in the preoperative holding area where the site and side of surgery marked by MD. Informed consent had been reviewed and signed in clinic was also reviewed the preoperatively holding area. All last minute questions were answered. Patient was then brought back in the operating room where he received a spinal anesthetic. He was then placed supine on operating room table. A nonsterile tourniquet was placed on the right thigh and the right lower extremity was then prepped and draped normal sterile fashion. Surgical time-out was performed verifying site side surgery was into the patient. A longitudinal incision over the anterior aspect of the knee was made the skin with a 10. Blade. A new 10. Blade was then used to elevate medial lateral flaps. Medial parapatellar arthrotomy was then marked and made. Hoffa fat pad was then removed. A medial peel was then performed. There was no ACL remnant. Large osteophytes removed from about the femur the tibia and the intercondylar notch. Carina's line was then marked as well as the entry site for tibial drill as well as the femoral drill. Drill was then used to enter the femoral canal and tibial canal respectively. Intramedullary emre was then placed inside the femur the 5 degree cutting block was then placed on the distal surface of the femur and pinned into place. After initial cut 2 more mm were taken. Of note patient does have a flexion contracture preoperatively. I then turned my attention to the tibial side placed intramedullary emre set the tibia. I then used the outrigger to place the tibial cutting jig. A drop emre was then used to verify varus valgus alignment. A tibial cut was then made and the tibial cut was removed as well as the medial meniscus. Great care was taken to preserve the PCL. At this point the knee was brought into full extension a 9 mm extension block which fit in the space however he was tighter laterally than medial. Pie crusting of the ITB band was then performed. This is corrected our varus valgus alignment. Knee was then brought into flexion the gap plastic frame inserter was used. The drill holes for the 5 1 cutting block were then drilled to the gap plastic frame inserter. The gap plastic frame inserter was removed compared to the Sizer which showed approximately 3.5? of external rotation and this matched up with her gap plastic frame inserter holes. It was noted that his flexion gap was larger than his extension gap. I then posterior eyes the 5 1 cutting block for the size 8 femur 2 mm. Five 1 cutting block was then placed on the femur pinned in place and the cuts were then made. A trial femur was then placed and a size 8 tibial base plate with a 9 mm thick polyethylene was placed knee was brought into full extension however it was still lax in the flexion space. I then up sized to a size 11 mm thick CR which improved this tracking. The patella was then freehand cut and t hen sized to a size 35 mm patellar button this was drilled in place. Knee was brought through range of motion there was some lateral tilting of the patella lateral release was then performed. This improved our patellar tracking. Tibial base plate was marked using floating technique. At this point the trials were removed the knee. The tibial base plate was then returned and the keel was then drilled and punched. Bony fragments were plate and placed inside the tibial canal as well as the femoral canal as bony blocks. Next the knee Was thoroughly irrigated with pulse lavage normal saline. Local anesthetic was infiltrated in the periarticular soft tissues including the back the knee. Cement was then mixed cement was then mixed. Cement was finger packed into the keel hole as well as the cut surface of the tibia cement was placed on the undersurface the tibial base plate tibial base 8 was then placed and malleted into place all excess cement was removed. Cement was then finger packed on cut surface of the femur with exception the posterior condylar cut sent was placed on the feet of the femoral component malleted into place excess cement was removed. A size 10 mm thick CR polyethylene was placed and the knee was brought into full extension ankle was held in internal rotation. Cement was then finger packed onto the cut surface of the patella and the patella was then clamped into place excess cement was removed. Betadine was placed in the wound. This was allowed to fully cure was secured we thoroughly irrigated the knee and trialed several different size polyethylene settled on a size 12 mm thick polyethylene deep dish. This was then placed verifying the medial and lateral tabs were well engaged. The medial parapatellar arthrotomy was then closed using 1. Vicryl interrupted fashion followed by running Quill suture followed by 2 Vicryl in the subcutaneous layer followed by running 3-0 Stratafix followed by placement of a sagrario dressing. Complications: none Post-operative Condition: stable Disposition: PACU Plan for aftercare: 24 hours post-op abx, ASA 81mg BID for 6 weeks for DVT prophylaxis, WBAT RLE
--- NOTE | 2020-10-13 13:00 | DI.RAD.S_ITS ---
PROCEDURE: XR KNEE RT 1TO2V INDICATIONS: RIGHT TOTAL KNEE TECHNIQUE: 2 view(s) of the knee acquired. COMPARISON: [facility], МАРИН[place], [place]A KNEE LT 1TO2V, 02/23/2020, 13:26. [facility], CR, XR KNEE 4+ VIEWS RIGHT, 06/22/2020, 9:24. [facility], CR, XR KNEE ARTHRITIC SERIES LT, 03/05/2020, 11:42. FINDINGS: Bones: Patient is status post knee joint arthroplasty. Hardware components are in expected positions. Visualized bony structures are intact. Soft tissues: Overlying postoperative changes are noted. IMPRESSION: Interval right knee arthroplasty as above. Dictated by: Roxie England M.D. on 10/13/2020 at 13:28 Approved by: Roxie England M.D. on 10/13/2020 at 13:28
--- NOTE | 2020-10-13 14:04 | SUR.PHASEI ---
Stable PACU stay pt refused medication, rated pain 2/10. No nausea, taking ice chips and sips of water. Pt transported up to room 218, on room air, left with Samaria in stable condition. Bed low, locked SCD's on ad call dahl in reach.
[2020-10-13] MEDS: HYDROMORPHONE 0.5 MG INJ 0.2 MG IV (14:53)
[2020-10-13] MEDS: LACTATED RINGERS 1,000 ML 100 ML IV (14:55)
[2020-10-13] MEDS: ACETAMINOPHEN 325 MG TABLET 650 MG PO ×2 (14:57→19:25)
--- NOTE | 2020-10-13 16:48 | PT.IIE ---
Current Diagnoses Unilateral primary osteoarthritis, right knee (10/13/20) Surgery Performed Operation Date: 10/13/20 10:45 Actual Procedures p Total Knee Arthroplasty(Right) - Edilson Leslie MD Surgical History (Last Updated 10/05/20 @ 12:56 by Na Abdul RN) History of arthroplasty of left knee (02/23/20) History of surgery History of vasectomy Hx of arthroscopy of right knee (~1997) Hx of arthroscopy of right knee (~2010) Hx of bilateral cataract extraction Hx of eye surgery Hx of hand surgery Hx of heart artery stent Hx of right knee surgery Hx of sinus surgery Hx of tonsillectomy Medical History (Last Updated 02/16/20 @ 13:27 by Na Abdul RN) CAD (coronary artery disease) GERD (gastroesophageal reflux disease) Glaucoma Head injury (1985) Hearing impaired Hemochromatosis HLD (hyperlipidemia) HTN (hypertension) Myocardial infarction (2005) Osteoarthritis Physical Therapy Inpatient Evaluation/Re-Eval M1 PT/OT-IP Prior Functional Status Start: 10/13/20 16:53 Freq: NEEDED Status: Active Protocol: Document 10/13/20 16:48 DLM (Rec: 10/13/20 17:10 DLM [id number]) Medical Review Prior Functional Status Medical History Reviewed Yes Diet/Fluid Consistency Regular Communication WNL Mobility and Gait Independent without device Activities of Daily Living and IADL's Independent. 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 will stay on main level, 4 steps to enter with rail Home Equipment Front Wheel Walker Employment Status Self-Employed Additional Social History Comment out-pt PT set-up for next week M2 PT-IP Current Condition Start: 10/13/20 16:53 Freq: NEEDED Status: Active Protocol: Document 10/13/20 16:48 DLM (Rec: 10/13/20 17:10 DLM [id number]) Physical Therapy Current Condition Current Condition Evaluation Date 10/13/20 Treatment Diagnosis right TKA, impaired gait and mobility Onset Date 10/13/20 Weight Bearing Status Weight Bearing Status Weight Bear as Tolerated M3 PT-IP Subjective Start: 10/13/20 16:53 Freq: NEEDED Status: Active Protocol: Document 10/13/20 16:48 DLM (Rec: 10/13/20 17:10 [facility] [id number]) Subjective Physical Therapy Visit Type Type Initial Evaluation Visit Start Time 16:15 Visit Stop Time 16:48 Total Visit Minutes 33 Number of DRY BOSS Visits 0 Physical Therapy Visit Comments Patient Comments He was having a lot of pain earlier but it is better now Patient Goals discharge home Therapy Pain Assessment Pain When Pain Assessed After Treatment Pain Present Pain Present Pain Reported Location left knee Intensity 4 Scale Used Numeric (0 - 10) Description Aching,Burning,Throbbing,With Movement Pain Behaviors Guarding,Moaning Pain Management Techniques Apply Cold,Re-positioning M4 PT-IP Mobility and Gait Start: 10/13/20 16:53 Freq: NEEDED Status: Active Protocol: Document 10/13/20 16:48 DLM (Rec: 10/13/20 17:10 [facility] [id number]) PT-Bed Mobility Assessment Supine to Sit Supine to Sit Minimal Assistance Sit to Supine Sit to Supine Minimal Assistance Scooting Scooting to Edge of Bed Independent PT-Transfer Assessment Sit to and From Stand Sit to and from Stand Contact Guard Assistance,Use of Upper Extremities Equipment Transfer Assistive Device Gait Belt,Front Wheeled Walker Comments Mobility Comments Pt sat up edge of bed and stood at bedside with FWW. He developed light-headedness in standing and then became nauseated. Pt better in sitting but had to return to supine to resolve his symptoms . Vitals signs back in Supine after standing BP 99/61, HR 58 . It improved to 112/76 and HR 52 with rest in supine. Vital signs in supine before start of therapy: BP 104/72 and HR 59. Gait Assessment Comments Gait Comments unable this visit due to light -headedness standing and drop in BP, his nurse was notified of this event PT-Balance Assessment Sitting Balance and Reactions Static Sitting Balance Ability Normal Dynamic Sitting Balance Ability Normal Standing Balance and Reactions Static Standing Balance Ability Good Dynamic Standing Balance Ability Fair Device Used FWW M5 PT-IP Objective Assessments Start: 10/13/20 16:53 Freq: NEEDED Status: Active Protocol: Document 10/13/20 16:48 DLM (Rec: 10/13/20 17:10 [facility] [id number]) Orientation Orientation/Cognition Level of Alertness Alert Orientation Name,Age,Birthday,Month,Date, Year,Day of Week,Place, Situation Language Function Ability No Deficits Noted Safety Awareness Understands Safety Issues Memory Description No Deficits Noted Comments reading glasses used Gross Range of Motion Upper Extremity ROM Assessment Within Functional Limits Lower Extremity ROM Assessment Right Impaired Impairments knee 20-40 degrees with pain Strength Upper Extremity Strength Assessment Within Functional Limits Lower Extremity Strength Assessment Right Impaired Hip needs assist to move LE in bed Knee unable Ankle DF 5/5 Comments Strength Comments pain interferes with functional strength right LE Coordination Assessment Gross Coordination Gross Coordination WNL Sensation Assessment Sensation Gross Sensation WNL Muscle Tone Muscle Tone WNL Yes M6 PT-IP Treatment Start: 10/13/20 16:53 Freq: NEEDED Status: Active Protocol: Document 10/13/20 16:48 DLM (Rec: 10/13/20 17:10 DLM [id number]) Physical Therapy Treatment Exercises Exercises Ankle Pumps Education Education Provided Weight Bearing Status,Post-Op Packet,Safety M7 PT-IP Assessment and Plan Start: 10/13/20 16:53 Freq: NEEDED Status: Active Protocol: Document 10/13/20 16:48 DLM (Rec: 10/13/20 17:10 DLM [id number]) PT Summary Assessment and Plan Potential Rehabilitation Potential Excellent Status of Condition at Evaluation Evolving Summary Impairments Pain,ROM,Strength,Balance,Bed Mobility,Transfers,Gait, Activity Tolerance Assessment Summary Carl reports his pain control is improving this afternoon. He was able to sit up edge of bed and progress to standing with the FWW. He developed light-headedness and nausea with standing and had to return to supine to resolve his symptoms. Noted drop in his BP also with standing. Pt left resting in bed with his visiting. His nurse is aware of how he tolerated activity. Will attempt to progress his activity tomorrow as his vitals become more stable. Will work towards his goal of discharge home with his to help. Goals Bed Mobility Goal Independent Transfer Goal Independent,Front Wheeled Walker Gait Goal Independent Gait Distance 150 feet Other Goals up and down 4 steps with rail and cane with CG assist Days to Meet Goals 2 Frequency of Treatment Frequency Of Treatment Twice a Day Treatment Plan Physical Therapy Treatment Plan Bed Mobility Training,Transfer Training,Gait Training, Therapeutic Exercise,Balance Retraining,Post Op Education, Discharge Planning,Hot or Cold Pack Recommendations To Nursing Amount of Assist Needed 1 Person Assist Discharge Recommendations PT Discharge Recommendations Home with Assistance, Outpatient PT Other Discharge Recommendations available to assist him, ferry ride to get home Transportation Needs at Discharge Private Vehicle
[2020-10-13] MEDS: OXYCODONE IR 10 MG TABLET PO ×2 (19:25→22:14)
[2020-10-13] MEDS: DOCUSATE 100 MG CAPSULE PO (22:07)
[2020-10-13] MEDS: ASPIRIN EC 325 MG TABLET PO (22:07)
[2020-10-13] MEDS: BIMATOPROST 0.01% 1 EACH EYE-BOTH (22:38)
[2020-10-14] VITALS: BP 114/71; PULSE 60; RESP 18; TEMP 35.7; O2SAT 96
[2020-10-14] MEDS: LACTATED RINGERS 1,000 ML 100 ML IV (01:17)
[2020-10-14] MEDS: HYDROMORPHONE 0.5 MG INJ 0.2 MG IV (01:17)
[2020-10-14] MEDS: CEFAZOLIN 1 GM VIAL 2 GM IV (03:03)
[2020-10-14] MEDS: OXYCODONE IR 5 MG TABLET PO (05:29)
[2020-10-14 05:56] VITALS: BP 125/78; PULSE 68; RESP 18; TEMP 36.9; O2SAT 96
[2020-10-14 05:58] LABS: Hematocrit 34.2 % (41-53)
[2020-10-14 07:48] VITALS: BP 125/73; PULSE 68; RESP 18; TEMP 37; O2SAT 95
--- NOTE | 2020-10-14 09:37 | P.PN_ITS ---
Subjective Subjective Date Patient Seen: 10/14/20 Time Patient Seen: 09:37 Interval history: Patient states he is doing well overall and is in mild discomfort at rest. At this time patient denies fever, chills, nausea, chest pain, shortness of breath, or urinary retention. Patient reports good sensation throughout the bilateral lower extremities. Exam Vital Signs (past 8 hours): - 10/14/20 05:56 10/14/20 07:48 Temperature 98.5 F 98.6 F Pulse Rate 68 68 Respiratory Rate 18 18 Blood Pressure 125/78 125/73 Pulse Oximetry 96 95 Oxygen Delivery Method Room Air Oxygen Flow Rate 0 Narrative Exam Narrative: 60-year-old male postop day 1 status post right total knee arthroplasty. Patient is resting comfortably in bed, is in no acute distress, and is alert and oriented x3. Skin is warm and dry, and the skin surrounding the incision site is free of erythema, warmth, induration, or discharge. Jose Alejandro dressing over the incision site is clean, dry, intact, and functioning. Good s ensation appreciated throughout the bilateral lower extremities to light touch. Ankle dorsiflexion, plantar flexion, eversion, inversion performed bilaterally without difficulty or discomfort. Gross motor function intact throughout the bilateral lower extremities. Calves are soft nontender, negative Homans sign. DP pulses palpated bilaterally. No other signs of DVT appreciated. Const General: cooperative, healthy appearing and comfortable Resp Effort & Inspection: normal respiratory effort and able to speak in complete sentences Skin General: no rashes or lesions noted Objective Labs Result Diagrams: 10/14/20 05:15 Labs: Laboratory Results - last 24 hr 10/14/20 05:15 Hgb 12.0 L Hct 34.2 L [facility] Medical History CAD (coronary artery disease) GERD (gastroesophageal reflux disease) Glaucoma Head injury (1985) Hearing impaired Hemochromatosis HLD (hyperlipidemia) HTN (hypertension) Myocardial infarction (2005) Osteoarthritis Surgical History History of arthroplasty of left knee (02/23/20) History of surgery History of vasectomy Hx of arthroscopy of right knee (~1997) Hx of arthroscopy of right knee (~2010) Hx of bilateral cataract extraction Hx of eye surgery Hx of hand surgery Hx of heart artery stent Hx of right knee surgery Hx of sinus surgery Hx of tonsillectomy Social History household members: spouse Smoking Status: Former smoker alcohol intake: former Assessment & Plan Post-op Postoperative Procedures: Procedures Operation Date: 10/13/20 10:45 Actual Procedures Side Surgeon p Total Knee Arthroplasty Right Edilson Leslie MD Postoperative day: 1 Postoperative status: doing well Postoperative plan: ambulate Postoperative plan narrative: Patient has to work on ambulation with the assistance of a front wheeled walker with physical therapy. Current pain management regimen is to be continued as it is adequately controlled the patient's pain level at this time. Aspirin 81 mg twice daily is to be continued for 6 weeks for DVT prophylaxis. Patient is to be maintained in weight-bearing as tolerated status. Jose Alejandro dressing over the incision site is to remain intact f or 1 week. Plan for discharge likely home today or tomorrow pending successful work with PT. Time Spent With Patient Time with patient: less than 15 minutes
--- NOTE | 2020-10-14 09:43 | P.DS_ITS ---
History of Present Illness History of Present Illness Date Patient Seen: 10/14/20 Time Patient Seen: 09:43 Chief complaint: Right Total Knee Arthroplasty *OPB* Narrative: Referred to previous HPI. Discharge Providers Provider Discharge Date: 10/14/20 Primary care physician: Mauro Moreno MD Consults: 10/13/20 13:49 Consult to Discharge Planning Routine Comment: Consult to Physical Therapy Evaluate & Treat Comment: Physician Instructions: postop TKA protocol Consult to Respiratory Therapy Evaluate & Treat Comment: Physician Instructions: Evaluate and treat Discharge provider: Abhi Zhong PA-C Summary Hospital Course Discharge Diagnosis: Right knee osteoarthritis Status post right total knee arthroplasty Hospital Course: Patient was admitted to the hospital following the above-listed procedure for the above-listed diagnosis. Following the procedure the patient has been convalescing appropriately in his pain has been managed with his current pain management regimen. Jose Alejandro dressing over the incision site has remained intact following surgery. Aspirin 81 mg twice daily has been provided for DVT prophylaxis along with the assistance of sequential compression devices. Patient has been able to ambulate with the assistance of a front wheeled walk er. Patient has remained weight-bearing as tolerated with the assistance front wheeled walker. Status at Discharge Cognitive/behavioral status at discharge: oriented Functional status at discharge: uses cane/walker Overall status at discharge: patient is progressing back to baseline Exam Vital Signs (past 8 hours): - 10/14/20 05:56 10/14/20 07:48 Temperature 98.5 F 98.6 F Pulse Rate 68 68 Respiratory Rate 18 18 Blood Pressure 125/78 125/73 Pulse Oximetry 96 95 Oxygen Delivery Method Room Air Oxygen Flow Rate 0 Narrative Exam Narrative: 60-year-old male postop day 1 status post right total knee arthroplasty. Patient is resting comfortably in bed, is in no acute distress, and is alert and oriented x3. Skin is warm and dry, and the skin surrounding the incision site is free of erythema, warmth, induration, or discharge. Jose Alejandro dressing over the incision site is clean, dry, intact, and functioning. Good sensation appreciated throughout the bilateral lower extremities to light touch. Ankle dorsiflexion, plantar flexion, eversion, inversion performed bilaterally without difficulty or discomfort. Gross motor function intact throughout the bilateral lower extremities. Calves are soft nontender, negative Homans sign. DP pulses palpated bilaterally. No other signs of DVT appreciated. Const General: cooperative, healthy appearing and comfortable [facility] Head: normal to inspection Resp Effort & Inspection: normal respiratory effort and able to speak in complete sentences Skin General: no rashes or lesions noted Objective Labs Result Diagrams: 10/14/20 05:15 Labs: Laboratory Results - last 24 hr 10/14/20 05:15 Hgb 12.0 L Hct 34.2 L [facility] Medical History CAD (coronary artery disease) GERD (gastroesophageal reflux disease) Glaucoma Head injury (1985) Hearing impaired Hemochromatosis HLD (hyperlipidemia) HTN (hypertension) Myocardial infarction (2005) Osteoarthritis Surgical History History of arthroplasty of left knee (02/23/20) History of surgery History of vasectomy Hx of arthroscopy of right knee (~1997) Hx of arthroscopy of right knee (~2010) Hx of bilateral cataract extraction Hx of eye surgery Hx of hand surgery Hx of heart artery stent Hx of right knee surgery Hx of sinus surgery Hx of tonsillectomy Social History household members: spouse Smoking Status: Former smoker alcohol intake: former Discharge Assessment & Plan Assessment and Plan Assessment: Patient is doing well and is stable. Plan of Treatment: Patient is to continue outpatient physical therapy following discharge from hospital. First postoperative visit included is scheduled for 2 weeks following discharge. Current pain management regimen is to be continued as it is adequately controlled the patient's pain level. Aspirin 81 mg twice daily is to be continued for 6 weeks for DVT prophylaxis. Jose Alejandro dressing over the incision s ite is to remain clean, dry, and intact for 1 week. Contact clinic if the dressing becomes damaged or soiled. Patient is to remain weight-bearing as tolerated with the assistance of a front wheeled walker. Patient is to contact clinic with any concerns or questions. Any signs of increased redness, swelling, warmth, pain, or discharge from around the incision site should be reported to the clinic. Discharge Plan Discharge Plan Patient Disposition: Home Provider Discharge Comment: Patient cleared for discharge pending PT clearance. Discharge orders & Medications Discharge Orders: Discharge (Order); Ordered 10/14/20 Ordered By: Abhi Zhong Prescriptions: New acetaminophen 325 mg Tablet 650 mg PO TID Qty: 90 RF: 0 aspirin 325 mg Tablet,Delayed Release (Dr/Ec) 325 mg PO BID Qty: 90 RF: 0 oxycodone 10 mg Tablet 10 mg PO Q3HR PRN (Reason: Pain, Severe (7-10)) Qty: 42 RF: 0 Continued Lumigan 0.01 % Drops 1 drp EYE-BOTH DAILY RF: 0 biotin 5,000 mcg Tablet,Disintegrating 5,000 mcg PO DAILY RF: 0 Follow up/Referrals: Mauro Moreno MD [Primary Care Provider] - Diet/Activity/Treatments Diet: Regular Activity: Weight-bearing as tolerated with the assistance of a front wheeled walker. Skin/Wound/Dressing Care Report to your healthcare provider any signs of infection, such as:: chills, fever, night sweats, increased pain, unusual drainage and unusual redness Dressing: Jose Alejandro dressing over the incision site is to remain intact for 1 week. Contact clinic if the dressing becomes damaged or soiled. Other wound treatment: Avoid placing topical ointments over the incision site. Avoid soaking the incision site. Visit Report/Discharge Packet Instructions: DI for Knee Replacement Stand Alone Forms: Surgery Discharge Discharge Data Primary Care Provider: Mauro Moreno Attending Provider: Edilson Leslie
[2020-10-14] MEDS: DOCUSATE 100 MG CAPSULE PO (10:00)
[2020-10-14] MEDS: ACETAMINOPHEN 325 MG TABLET 650 MG PO ×2 (10:00→14:28)
--- NOTE | 2020-10-14 10:10 | PT.IPTN ---
Current Diagnoses Unilateral primary osteoarthritis, right knee (10/13/20) Surgery Performed Operation Date: 10/13/20 10:45 Actual Procedures p Total Knee Arthroplasty(Right) - Edilson Leslie MD Physical Therapy Treatment Note M2 PT-IP Current Condition Start: 10/13/20 16:53 Freq: NEEDED Status: Active Protocol: Document 10/14/20 10:14 MA (Rec: 10/14/20 10:30 MA [id number]) Physical Therapy Current Condition Current Condition Evaluation Date 10/13/20 Treatment Diagnosis right TKA, impaired gait and mobility Onset Date 10/13/20 Weight Bearing Status Weight Bearing Status Weight Bear as Tolerated M3 PT-IP Subjective Start: 10/13/20 16:53 Freq: NEEDED Status: Active Protocol: Document 10/14/20 10:14 MA (Rec: 10/14/20 10:29 MA [id number]) Subjective Physical Therapy Visit Type Type Treatment Note Visit Start Time 09:50 Visit Stop Time 10:10 Total Visit Minutes 20 Notes Vitals stable 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 Therapy Pain Assessment Location left knee Pain Behaviors Facial Grimacing,Holding Area, Moaning,Wincing Pain Management Techniques Apply Cold,Elevation,Timing of Activity with Medications M4 PT-IP Mobility and Gait Start: 10/13/20 16:53 Freq: NEEDED Status: Active Protocol: Document 10/14/20 10:14 MA (Rec: 10/14/20 10:29 MA [id number]) PT-Transfer Assessment Sit to and From Stand Sit to and from Stand Minimal Assistance,1 Person Assistance,Use of Upper Extremities Equipment Transfer Assistive Device Gait Belt,Front Wheeled Walker Transfers Transfer Destination Chair,Toilet Transfer Technique Stand Step Pivot Transfer Ability Level of Assist Minimal Assistance,1 Person Assistance Comments Mobility Comments Pt was instructed in using belt to move RLE to EOB from upright seated position. He has increased pain with movement and requires min A for his leg while using belt. He is Min A with use of bilateral UEs for sit<>stand, requiring cues to push from bed vs pulling up on walker. Gait Assessment Gait Gait Assistance Required: Minimum Assistance Distance (Feet) 15 Able to Maintain Weight Bearing Status Yes During Gait Assistive Devices Assistive Device Front Wheeled Walker Gait Deviations General Gait Pattern Antalgic,Decreased Stride Length,Decreased Feet Clearance Factors Limiting Gait Function Factors Limiting Gait Function Decreased Sensation,Limited Range of Motion,Pain Comments Gait Comments Pt was able to ambulate to & from bathroom Min A for walker and line management. He stood to use commode holding walker and handrail and was able to maintain balance CGA PT-Balance Assessment Sitting Balance and Reactions Static Sitting Balance Ability Good Dynamic Sitting Balance Ability Good Standing Balance and Reactions Static Standing Balance Ability Good Dynamic Standing Balance Ability Fair Device Used FWW M5 PT-IP Objective Assessments Start: 10/13/20 16:53 Freq: NEEDED Status: Active Protocol: Document 10/14/20 10:14 MA (Rec: 10/14/20 10:30 MA [id number]) Orientation Orientation/Cognition Level of Alertness Alert Orientation Name,Age,Birthday,Month,Date, Year,Day of Week,Place, Situation Language Function Ability No Deficits Noted Safety Awareness Understands Safety Issues Memory Description No Deficits Noted Comments reading glasses used Gross Range of Motion Upper Extremity ROM Assessment Within Functional Limits Lower Extremity ROM Assessment Right Impaired Impairments knee 20-40 degrees with pain Strength Upper Extremity Strength Assessment Within Functional Limits Lower Extremity Strength Assessment Right Impaired Hip needs assist to move LE in bed Knee unable Ankle DF 5/5 Comments Strength Comments pain interferes with functional strength right LE Coordination Assessment Gross Coordination Gross Coordination WNL Sensation Assessment Sensation Gross Sensation WNL Muscle Tone Muscle Tone WNL Yes M6 PT-IP Treatment Start: 10/13/20 16:53 Freq: NEEDED Status: Active Protocol: Document 10/14/20 10:14 MA (Rec: 10/14/20 10:29 MA [id number]) Physical Therapy Treatment Exercises Exercises Ankle Pumps Education Education Provided Safety Other Treatments Other Treatment Performed Pt's brought in FWW from home. Adjusted walker to correct height for use after d /c M7 PT-IP Assessment and Plan Start: 10/13/20 16:53 Freq: NEEDED Status: Active Protocol: Document 10/14/20 10:14 MA (Rec: 10/14/20 10:29 MA [id number]) PT Summary Assessment and Plan Potential Rehabilitation Potential Excellent Status of Condition at Evaluation Stable Summary Impairments Pain,ROM,Strength,Balance, Sensation,Transfers,Gait, Activity Tolerance Progress Towards Goals Slow Progress due to Pain Assessment Summary Pt's BP remained stable during today's session. He was able to move from sitting in bed to EOB Min Ax1 with cues for using belt to help move RLE. He has good sitting balance EOB and is able to perform ankle pumps and flexing/ extending RLE SBA. Pt requires cues to push with UEs from bed vs pulling on walker. He was able to ambulate Min Ax1 to/from bathroom 15 ft where he stood to void CGA holding walker and grab bar. Pt was returned to room chair where he requested stretching out his leg before elevating. CRN and made aware of pt's status and instructed to elevate pt's leg in recliner with ice after 10 minutes. Goals Bed Mobility Goal Independent Transfer Goal Independent,Front Wheeled Walker Gait Goal Independent Gait Distance 150 feet Other Goals up and down 4 steps with rail and cane with CG assist Days to Meet Goals 2 Frequency of Treatment Frequency Of Treatment Twice a Day Treatment Plan Physical Therapy Treatment Plan Bed Mobility Training,Transfer Training,Gait Training, Therapeutic Exercise,Balance Retraining,Post Op Education, Discharge Planning,Hot or Cold Pack Recommendations To Nursing Amount of Assist Needed 1 Person Assist Discharge Recommendations PT Discharge Recommendations Home with Assistance, Outpatient PT Other Discharge Recommendations available to assist him, dimasy ride to get home Transportation Needs at Discharge Private Vehicle
[2020-10-14 10:14] VITALS: BP 127/75
[2020-10-14] MEDS: OXYCODONE IR 10 MG TABLET PO ×2 (10:25→13:13)
--- NOTE | 2020-10-14 10:48 | CM.DANOTE ---
DCP: Case received, EMR reviewed and met with patient. Introduced self and role. Was able to obtain information from patient regarding his baseline activity status at home prior to hospitalization. DCP assessment completed with information currently available. Patient is a 60 year old male who admitted yesterday morning to the care of the orthopedic team. PCP: Dr. Jurado. Payer: confirmed: [facility]. Patient came to the hospital via private vehicle for a surgical procedure. He had right total knee arthroplasty. Patient has history of osteoarthritis of the knee. Met with patient in his room. He is alert and oriented, pleasant. He resides on [address] with his spouse, Padmaja. He is independent at his baseline. He is self-employed as an entry level electrician/contractor. P: DCP to continue to follow. He will continue to work with P.T. Plan is for home with support of spouse when deemed medically stable. Yennifer Figueroa RN/Correspondence Representative
[2020-10-14] MEDS: ASPIRIN EC 325 MG TABLET PO (11:25)
--- NOTE | 2020-10-14 13:49 | PT.IPTN ---
Current Diagnoses Unilateral primary osteoarthritis, right knee (10/14/20) Surgery Performed Operation Date: 10/13/20 10:45 Actual Procedures p Total Knee Arthroplasty(Right) - Edilson Leslie MD Physical Therapy Treatment Note M2 PT-IP Current Condition Start: 10/13/20 16:53 Freq: NEEDED Status: Active Protocol: Document 10/14/20 10:14 MA (Rec: 10/14/20 10:30 MA [id number]) Physical Therapy Current Condition Current Condition Evaluation Date 10/13/20 Treatment Diagnosis right TKA, impaired gait and mobility Onset Date 10/13/20 Weight Bearing Status Weight Bearing Status Weight Bear as Tolerated M3 PT-IP Subjective Start: 10/13/20 16:53 Freq: NEEDED Status: Active Protocol: Document 10/14/20 13:49 DLM (Rec: 10/14/20 14:09 DLM [id number]) Subjective Physical Therapy Visit Type Type Treatment Note Visit Start Time 13:05 Visit Stop Time 13:49 Total Visit Minutes 44 Number of CHANNEL PROGRAM MANAGER Visits 0 Physical Therapy Visit Comments Patient Comments He feels well enough to go home today Therapy Pain Assessment Pain When Pain Assessed After Treatment Pain Present Pain Present Pain Reported Location left knee Intensity 3 Scale Used Numeric (0 - 10) Description Aching Pain Behaviors Guarding,Wincing Pain Management Techniques Apply Cold,Elevation M4 PT-IP Mobility and Gait Start: 10/13/20 16:53 Freq: NEEDED Status: Active Protocol: Document 10/14/20 13:49 DLM (Rec: 10/14/20 14:09 DLM [id number]) PT-Transfer Assessment Sit to and From Stand Sit to and from Stand Standby Assistance,Use of Upper Extremities Equipment Transfer Assistive Device Gait Belt,Front Wheeled Walker Transfers Transfer Destination Chair,Wheelchair Transfer Technique Stand Step Pivot Transfer Ability Level of Assist Standby Assistance Comments Mobility Comments he has heavy reliance on UEs during sit-stand with the fWW Gait Assessment Gait Gait Assistance Required: Standby Assistance Distance (Feet) 20 Able to Maintain Weight Bearing Status Yes During Gait Assistive Devices Assistive Device Front Wheeled Walker Gait Deviations General Gait Pattern Antalgic,Decreased Stride Length,Decreased Feet Clearance Factors Limiting Gait Function Factors Limiting Gait Function Decreased Activity Tolerance, Decreased Strength,Limited Range of Motion,Pain Comments Gait Comments no light-headedness when up moving, fair tolerance for weight bearing on his right LE but good compensation with UE 's on FWW Stair Climbing Assessment Evaluation Level of Assist On Stairs Standby Assistance Devices Stair Climbing Assistive Devices Left Railing,Right Railing Technique/Endurance Stair Climbing Direction Ascend and Descend Stair Climbing Technique Step to Step Number of Steps Climbed 3 Stair Climbing Set # Repetitions (reps) 1 M5 PT-IP Objective Assessments Start: 10/13/20 16:53 Freq: NEEDED Status: Active Protocol: Document 10/14/20 10:14 MA (Rec: 10/14/20 10:30 MA [id number]) Orientation Orientation/Cognition Level of Alertness Alert Orientation Name,Age,Birthday,Month,Date, Year,Day of Week,Place, Situation Language Function Ability No Deficits Noted Safety Awareness Understands Safety Issues Memory Description No Deficits Noted Comments reading glasses used Gross Range of Motion Upper Extremity ROM Assessment Within Functional Limits Lower Extremity ROM Assessment Right Impaired Impairments knee 20-40 degrees with pain Strength Upper Extremity Strength Assessment Within Functional Limits Lower Extremity Strength Assessment Right Impaired Hip needs assist to move LE in bed Knee unable Ankle DF 5/5 Comments Strength Comments pain interferes with functional strength right LE Coordination Assessment Gross Coordination Gross Coordination WNL Sensation Assessment Sensation Gross Sensation WNL Muscle Tone Muscle Tone WNL Yes M6 PT-IP Treatment Start: 10/13/20 16:53 Freq: NEEDED Status: Active Protocol: Document 10/14/20 13:49 DLM (Rec: 10/14/20 14:09 DLM [id number]) Physical Therapy Treatment Exercises Exercises Ankle Pumps,Seated Knee Flexion/Extension Knee ROM Measurement flex 40 degrees with pain Education Education Provided Weight Bearing Status,Post-Op Packet,Safety Other Treatments Other Treatment Performed reviewed written HEP with pt, pt reports hx doing these exercises, he has been working on knee flexion while sitting up in recliner M7 PT-IP Assessment and Plan Start: 10/13/20 16:53 Freq: NEEDED Status: Active Protocol: Document 10/14/20 13:49 DLM (Rec: 10/14/20 14:09 DLM [id number]) PT Summary Assessment and Plan Summary Impairments Pain,ROM,Strength,Balance, Sensation,Transfers,Gait, Activity Tolerance Progress Towards Goals Slow Progress due to Pain Assessment Summary Carl is eager for discharge and [place]. He demonstrates a safe gait pattern with the fWW and was able to go up and down the steps to enter his home. His is present for most of treatment session and questions answered. He appears to be safe to discharge home today when medically cleared. His knee pain continues to limit his tolerance for knee flexion. Goals Bed Mobility Goal Independent Transfer Goal Independent,Front Wheeled Walker Gait Goal Independent Gait Distance 150 feet Other Goals up and down 4 steps with rail and cane with CG assist Days to Meet Goals 2 Frequency of Treatment Frequency Of Treatment Twice a Day Treatment Plan Physical Therapy Treatment Plan Bed Mobility Training,Transfer Training,Gait Training, Therapeutic Exercise,Balance Retraining,Post Op Education, Discharge Planning,Hot or Cold Pack Recommendations To Nursing Amount of Assist Needed 1 Person Assist Discharge Recommendations PT Discharge Recommendations Home with Assistance, Outpatient PT Other Discharge Recommendations available to assist him, maricel ride to get home Transportation Needs at Discharge Private Vehicle
--- NOTE | 2020-10-14 15:43 | PC.NURSE ---
Pt A&Ox3. VSS, afebrile. Aquacel to RLE C/D/I able to participate well with PT /OT this shift. MD at bedside this a.m. clearing patient for discharge. He verbalizes understanding of medications, wound care, activity, follow up care and s/sx of infection as well as significant other this afternoon. After working with therapy to complete stair training pt is cleared for discharge this afternoon. Oxycodone 10mg given for increased pain this shift with activity with good effect. Discharge at 1500 with all of belongings via w/chair escort to private vehicle home with spouse.
== END 2020-10-14 15:00 | disposition home or self-care (01) ==
LOC: OR 11:27 → AC 11:28
PROVIDERS: Admitting Provider Orthopaedic Surgery Adult Reconstructive Orthopaedic Surgery; PCP Family Medicine; Referring Provider Orthopaedic Surgery Adult Reconstructive Orthopaedic Surgery; Visit Provider Orthopaedic Surgery Adult Reconstructive Orthopaedic Surgery
PROC: 0SRC0JZ Replacement of Right Knee Joint with Synthetic Substitute, Open Approach (ICD-10-PCS; CPT 27447; principal; 2020-10-13 10:45)
DX: M17.11 Unilateral primary osteoarthritis, right knee (principal); M21.061 Valgus deformity, not elsewhere classified, right knee; I25.10 Atherosclerotic heart disease of native coronary artery without angina pectoris; K21.9 Gastro-esophageal reflux disease without esophagitis; E78.5 Hyperlipidemia, unspecified; I10 Essential (primary) hypertension; I25.2 Old myocardial infarction
CPT/HCPCS: 27447; 36415; 64450; 73560; 85014; 85018; 97110; 97116; 97162; 97530; C1776; G0378; J0690; J1170; J1885; J2250; J2270; J2704; J2795; J3010

== ENCOUNTER → 2020-10-18 14:30 | Outpatient (CLI) | payer OTHER, SELFPAY ==
[2020-10-13 13:50] VITALS: BMI 32.5
--- NOTE | 2020-10-18 14:35 | DI.US.S_ITS ---
PROCEDURE: US PERIPH VENOUS LOW EXTREM LT INDICATIONS: KNEE PAIN TECHNIQUE: Real-time imaging, as well as color and pulse Doppler interrogation, were performed of the lower extremity deep veins from the inguinal ligament to the popliteal fossa. COMPARISON: None. FINDINGS: The common femoral, femoral and popliteal veins are normally compressible, and free of intraluminal thrombus. Color and pulse Doppler demonstrate normal phasic intraluminal flow. There is normal augmentation response to distal compression maneuver. IMPRESSION: No deep venous thrombosis identified within the right lower extremity. Dictated by: Nito Hurst [facility] Interpreted: Joe Valiente MD on 10/18/2020 at 15:21 Transcribed by: PANKAJ on 10/18/2020 at 15:22 Approved by: Joe Valiente M.D. on 10/18/2020 at 15:22
== END ==
PROVIDERS: PCP Family Medicine; Referring Provider Orthopaedic Surgery Adult Reconstructive Orthopaedic Surgery; Visit Provider Orthopaedic Surgery Adult Reconstructive Orthopaedic Surgery
DX: M25.561 Pain in right knee (principal); Z96.651 Presence of right artificial knee joint
CPT/HCPCS: 93971

== ENCOUNTER → 2021-01-08 09:26 | Outpatient (CLI) | payer OTHER, SELFPAY ==
[2020-10-13 13:50] VITALS: BMI 32.5
[2021-01-08 09:59] LABS: COVID19 -Nasal RAPID Negative (Negative)
== END ==
PROVIDERS: PCP Family Medicine; Visit Provider Nurse Practitioner Family
DX: R05 Cough (principal); R09.81 Nasal congestion
CPT/HCPCS: 87635